=== PATIENT | male | born 1945 | race Caucasian/White ===

== ENCOUNTER 2022-06-16 15:26 | Emergency (ER) | payer BC, OTHER ==
[2022-06-16 15:36] VITALS: BP 111/61; PULSE 60; RESP 18; TEMP 98; BMI 29.3
[2022-06-16] MEDS ORDERED: CIPROFLOXACIN 500 MG TABLET (RESTRICTED TO ID) PO ONE (16:02)
[2022-06-16] MEDS ORDERED: DIPHTH,PERTUSS(ACELL),TET 0.5 ML DISP.SYRIN IM ONE ×2 (16:02→16:29)
== END 2022-06-16 17:00 | disposition home or self-care (01) ==
LOC: JERFT 15:26 → JER 15:26 → JERFT 17:00
PROC: 3E0234Z Introduction of Serum, Toxoid and Vaccine into Muscle, Percutaneous Approach (ICD-10-PCS; principal; 2022-06-16)
DX: S91.332A Puncture wound without foreign body, left foot, initial encounter (principal); W45.0XXA Nail entering through skin, initial encounter
CPT/HCPCS: 73630-TC-LT; 90471; 90715; 99284-25

== ENCOUNTER 2023-08-31 12:26 | Emergency (ER) | payer OTHER, BC ==
[2023-08-31 12:36] VITALS: BP 153/71; PULSE 63; RESP 18; TEMP 97.8; BMI 26.4
[2023-08-31] MEDS ORDERED: DIPHTH,PERTUSS(ACELL),TET 0.5 ML DISP.SYRIN IM ONE (13:17)
[2023-08-31] MEDS: DIPHTH,PERTUSS(ACELL),TET 0.5 ML DISP.SYRIN IM ONE (13:22)
== END 2023-08-31 15:32 | disposition home or self-care (01) ==
LOC: JERFT 12:26
PROC: 0HQFXZZ Repair Right Hand Skin, External Approach (ICD-10-PCS; principal; 2023-08-31)
PROC: 3E0234Z Introduction of Serum, Toxoid and Vaccine into Muscle, Percutaneous Approach (ICD-10-PCS; 2023-08-31)
DX: S61.214A Laceration without foreign body of right ring finger without damage to nail, initial encounter (principal); S61.216A Laceration without foreign body of right little finger without damage to nail, initial encounter; W45.0XXA Nail entering through skin, initial encounter
CPT/HCPCS: 73130-TC-RT-FY; 90715

== ENCOUNTER 2023-09-07 11:15 | Emergency (ER) | payer OTHER, BC ==
[2023-09-07 11:20] VITALS: BP 132/72; PULSE 68; RESP 19; TEMP 98.6; BMI 26.4
== END 2023-09-07 12:09 | disposition home or self-care (01) ==
LOC: JERFT 11:15
DX: Z48.02 Encounter for removal of sutures (principal)
CPT/HCPCS: 99281-25